=== PATIENT | female | born 1990 | race Caucasian/White ===

== ENCOUNTER 2024-09-03 18:59 | Outpatient (CLI) | payer OTHER, SELFPAY | END 2024-09-03 19:00 | disposition home or self-care (01) | PROVIDERS: Visit Provider Advanced Practice Midwife | DX: Z34.91 Encounter for supervision of normal pregnancy, unspecified, first trimester (principal); Z3A.10 10 weeks gestation of pregnancy | CPT/HCPCS: 86592; 86703; 86704; 86706; 86762; 86787; 86803; 86850; 86900; 86901; 87086; 87340 ==

== ENCOUNTER 2024-11-13 07:52 | Outpatient (CLI) | payer OTHER, SELFPAY | END 2024-11-13 07:53 | disposition home or self-care (01) | LOC: US 07:53 | PROVIDERS: Visit Provider Advanced Practice Midwife | DX: O09.812 Supervision of pregnancy resulting from assisted reproductive technology, second trimester (principal); Z3A.20 20 weeks gestation of pregnancy | CPT/HCPCS: 76811 ==

== ENCOUNTER 2025-01-10 11:20 | Outpatient (CLI) | payer OTHER, SELFPAY | END 2025-01-10 11:21 | disposition home or self-care (01) | LOC: NFLDREF 01-14 05:43 | PROVIDERS: Visit Provider Obstetrics & Gynecology | DX: Z34.03 Encounter for supervision of normal first pregnancy, third trimester (principal) | CPT/HCPCS: 86592 ==

== ENCOUNTER 2025-02-04 08:05 | Outpatient (CLI) | payer OTHER, SELFPAY ==
--- NOTE | 2025-02-04 08:15 | CRLHL7_ITS ---
For Patients: As a result of the Century Cures Act, medical imaging exams and procedure reports are released immediately into your electronic medical record. You may view this report before your referring provider. If you have questions, please contact your health care provider. OBSTETRICAL ULTRASOUND ??? FOLLOW-UP, 02/04/2025 INDICATION: IVF, growth. CLINICAL HISTORY: JOSE by US: 03/30/2025 Gestational Age: 32 weeks 2 days COMPARISON: 11/13/2024 TECHNIQUE: Real-time tijerina-scale imaging of the fetus was performed transabdominal. FINDINGS: Fetus: Single Cervix: Not visualized positioning: Vertex Amniotic fluid: 6.3 cm SDP Placenta technique: Transabdominal Placenta position: Anterior heart rate: 139 bpm BIOMETRY: BPD: 8.7 cm, 35 weeks 0 days, greater than 97% HC: 31.6 cm, 35 weeks 4 days, 91% AC: 29.4 cm, 33 weeks 2 days, 79% FL: 6.2 cm, 32 weeks 0 days, 28% FL/AC Ratio: 20.98% HC/AC ratio: 1.08 EFW: 2168 grams; 4 lbs. 12 oz. age by this ultrasound: 34 weeks 0 days JOSE by this ultrasound: 03/18/2025 Percentile by JOSE: 73% IMPRESSION: 1. Sonographic gestational age is 34 weeks 0 days and sonographic due date is 03/18/2025. Sonographic age is 12 days ahead of the clinical age. 2. Estimated weight is 73rd percentile. Abdominal circumference is 79th percentile. Biparietal diameter is greater than 97th percentile. HARRISON SERRANO M.D. Diagnostic Radiologist [email or web address] Transcribed: 9:[address]/Dictated by: Harrison Serrano MD @ 02/04/2025 8:39:00 AM (Electronically Signed)
== END 2025-02-04 08:06 | disposition home or self-care (01) ==
LOC: US 08:06
PROVIDERS: Visit Provider Advanced Practice Midwife
DX: O09.813 Supervision of pregnancy resulting from assisted reproductive technology, third trimester (principal); O36.63X0 Maternal care for excessive fetal growth, third trimester, not applicable or unspecified; Z3A.32 32 weeks gestation of pregnancy
CPT/HCPCS: 76816

== ENCOUNTER 2025-02-18 10:03 | Outpatient (CLI) | payer OTHER, SELFPAY ==
--- NOTE | 2025-02-18 | CRLHL7_ITS ---
For Patients: As a result of the Cures Act, medical imaging exams and procedure reports are released immediately into your electronic medical record. You may view this report before your referring provider. If you have questions, please contact your health care provider. OB ULTRASOUND JOSE by Manual: 03/30/2025. GA: 34 w, 2 d. Single. INDICATION: Decelerations on NST. TECHNIQUE: Real time grayscale imaging of the fetus was performed. Transabdominal. CERVIX: Not visualized. POSITIONING: Vertex. AMNIOTIC FLUID: 4.6 cm. SDP (N: greater than 2 x 1 cm) BIOPHYSICAL PROFILE: 2: Gross body movements 2: tone 2: Respiratory activity 2: Amniotic fluid SDP (N: greater than 2 x 1 cm) 8/8: Total score PLACENTA: Technique: Transabdominal. PLACENTA POSITION: Anterior. DOPPLER: heart rate: 161 bpm. IMPRESSION: Normal biophysical profile score 8/8. Harrison Cox M.D. Diagnostic Radiologist [email or web address] ruano/Dictated by: Harrison Cox MD @ 02/18/2025 3:18:00 PM (Electronically Signed)
== END 2025-02-18 10:04 | disposition home or self-care (01) ==
PROVIDERS: Visit Provider Obstetrics & Gynecology
DX: O36.8390 Maternal care for abnormalities of the fetal heart rate or rhythm, unspecified trimester, not applicable or unspecified (principal); Z3A.34 34 weeks gestation of pregnancy
CPT/HCPCS: 76819

== ENCOUNTER 2025-03-04 08:00 | Outpatient (CLI) | payer OTHER, SELFPAY ==
--- NOTE | 2025-03-04 08:15 | CRLHL7_ITS ---
For Patients: As a result of the Century Cures Act, medical imaging exams and procedure reports are released immediately into your electronic medical record. You may view this report before your referring provider. If you have questions, please contact your health care provider. INDICATION: In-vitro fertilization TECHNIQUE: Ultrasound OB pelvis transabdominal. Real-time tijerina-scale imaging of the fetus was performed with color Doppler and spectral Doppler analysis of the umbilical artery without stress testing. COMPARISON: 02/18/2025 FINDINGS: Sonographic imaging demonstrates a single living intrauterine gestation. Fetus demonstrates a regular cardiac rate of 139 beats per minute. Fetus has a cephalic orientation. The placenta lies anterior. Amniotic fluid volume appears normal with a MVP of 4.9 cm. breathing movements, motion, and tone were all observed. IMPRESSION: Single viable intrauterine with a biophysical profile 06/13. Dictated by Chavez Vogel MD @ 03/04/2025 8:54:38 AM (Electronically Signed)
== END 2025-03-04 08:01 | disposition home or self-care (01) ==
LOC: US 08:01
PROVIDERS: Visit Provider Advanced Practice Midwife
DX: O09.819 Supervision of pregnancy resulting from assisted reproductive technology, unspecified trimester (principal)
CPT/HCPCS: 76819; 87081; 87653

== ENCOUNTER 2025-03-07 14:55 | Outpatient (CLI) | payer OTHER, SELFPAY ==
[2025-03-07] VITALS (9 sets, daily range): BP systolic 136–146; BP diastolic 75–93; PULSE 93–109; RESP 18; TEMP 36.8; O2SAT 97–99
[2025-03-07 15:25] LABS: Hematocrit 34.3 % (33.0-51.0); Hemoglobin* 11.7 gm/dL (12.0-16.0); Mean Corpuscular HGB Conc 34 gm/dL (32-36); Mean Corpuscular Hemoglobin 30 pg (26-34); Mean Corpuscular Volume 86 fL (80-100); Platelet Count* 280 K/uL (140-440); Red Blood Count 3.97 m/uL (4.00-5.20)
[2025-03-07 15:31] LABS: Slide Review Reflex No
[2025-03-07 15:56] LABS: Total Protein Urine 38 mg/dL
[2025-03-07 16:10] LABS: Alanine Aminotransferase* 18 U/L (4-35); Aspartate Amino Transferase* 28 U/L (12-35); Blood Urea Nitrogen* 6 mg/dL (5-24); Creatinine* 0.5 mg/dL (0.5-1.5); Estimated Glomerular Filt Rate 125 ml/min
[2025-03-07 16:13] LABS: Creatinine Urine 51.8 mg/dL; Protein Creatinine Ratio Urine 0.73 (0-0.19)
--- NOTE | 2025-03-07 17:44 | P.OBO_ITS ---
OB Outpatient HPI History of Present Illness Date Seen: 03/07/25 History of Present Illness: 35 year old at 36 5/7 weeks' gestation by IVF dating, JOSE 03/30/25, presents with report of elevated BP at home. Her friend checked her BP and found it to be 140s - 150s / 90s. She denies GAINES, visual changes, or RUQ pain. OB Problem List, Past Medical, Surgical, Family and Social histories are reviewed and updated in EHR. Meds Home Medications and Allergies Home Medications ?Medication ?Instructions ?Recorded ?Confirmed ?Type bupropion HCl 300 mg 24 hr tablet, 300 mg PO QAM 09/03/24 03/04/25 History extended release (Wellbutrin XL) vit 168-iron 27 mg-folic cap PO 09/03/24 03/04/25 History acid 800 mcg-omega3 235 mg capsule (One-A-Day -1) aspirin 81 mg chewable tablet 81 mg PO QDAY 12/11/24 03/04/25 History Allergies Allergy/AdvReac Type Severity Reaction Status Date / Time Milk Containing Products AdvReac Intermediate Abdominal Verified 03/04/25 08:37 (Dairy) Pain [facility] Medical History (Updated 03/07/25 @ 18:48 by Susan De La Vega MD) Influenza B ?J10.1 - Influenza due to other identified influenza virus with other respiratory manifestations (ICD-10) Infertility Anxiety ?F41.9 - Anxiety disorder, unspecified (ICD-10) Surgical History [place] teeth extracted ?K08.409 - Partial loss of teeth, unspecified cause, unspecified class (ICD- 10) Social History (Updated 03/07/25 @ 18:46 by Susan De La Vega MD) Narrative: She lives with and two stepsons. She works in an office. What is your current living situation?: I presently have a place to live Problems where you live: no known problems In the past 12 months, utilities in danger of being shut off: no In past 12 months, lack of transportation kept you from medical appts, meetings, work, or getting things needed for daily living: no In the past 12 mos, have been you worried that your food would run out before you had money to buy more?: never true In the past 12 mos, the food you bought just didn't last and you didn't have money to buy more?: never true Smoking Status: Never smoker How often does anyone, including family, friends and others, physically hurt you : never How often does anyone, including family, friends and others, insult or talk down to you: never How often does anyone, including family, friends and others, threaten you with harm: never How often does anyone, including family, friends and others, scream or curse at you: never History History 1 Elective abortions Para 0 Spontaneous abortions Hx # Term Pregnancies Ectopic pregnancies Hx # Pregnancies Multiple births Number of Living Children OB - H&P: Exam Physical Exam Vital signs: Temp Pulse Resp BP Pulse Ox 98.3 F 102 H 18 142/75 H 97 03/07/25 15:12 03/07/25 16:42 03/07/25 15:12 03/07/25 16:42 03/07/25 15:06 Narrative: Physical exam: General: No acute distress Psych: Alert and oriented x3, full affect HEENT: Normocephalic, atraumatic Neck: No cervical adenopathy, no thyromegaly Heart: Regular rate and rhythm, no murmur rub or gallop Lungs: Clear to auscultation bilaterally Abdomen: Soft, nontender, gravid, cephalic lie Lower extremities: No edema or erythema Pelvic exam: Mons normal. Cervix 1 / 60 / -3 / anterior / firm. tracing: Baseline 140 / accelerations present / no decelerations / moderate variability. Labs Labs Laboratory Tests 03/07/25 Range/Units 15:20 WBC 10.30 (4.50-11.00) K/uL RBC 3.97 L (4.00-5.20) m/uL Hgb 11.7 L (12.0-16.0) gm/dL Hct 34.3 (33.0-51.0) % MCV 86 (80-100) fL MCH 30 (26-34) pg MCHC 34 (32-36) gm/dL Plt Count 280 (140-440) K/uL BUN 6 (5-24) mg/dL Creatinine 0.5 (0.5-1.5) mg/dL Estimated GFR 125 ml/min AST 28 (12-35) U/L ALT 18 (4-35) U/L Urine Creatinine 51.8 mg/dL Protein/Creatinin Ratio 0.73 H (0-0.19) Urine Total Protein 38 mg/dL Assessment and Plan Assessment and plan (1) Preeclampsia: Status: Acute Assessment and Plan: Currently without severe features. Category I tracing. Unfavorable cervix. Plan We discussed ACOG recommendation for IOL at 37 weeks in the scenario of preeclampsia. She agrees to this plan, but her stepson does have prom tomorrow night and she would like to see him. Thus, we will plan for her to return on Monday evening at 1600, on which day she will be 37 0/7 weeks' gestation, for cervical ripening with Cook catheter. We discussed the usual approach to IOL. Should she develop severe BP elevations, unremitting GAINES, visual changes, or RUQ pain before Monday, she is to return, .
--- NOTE | 2025-03-07 18:10 | PC.OBNST ---
NST Note NST Note Start: 03/07/25 14:53 Freq: ONCE Status: Active Protocol: Document 03/07/25 18:05 OWEN (Rec: 03/07/25 18:09 OWEN Desktop) NST Note 1 Para (# of births) 0 EDC 03/30/25 Gestational Age In Weeks & Days 36 Weeks & 5 Days High Risk Factors Advanced Maternal Age Patient Presented with Complaint(s) of Other Other Complaints Pt. Presented with newly elevated BP today in clinic. BP 154/100 and sent to OB for Serial BP's, Labs, and NST Reactive Yes Appropriate for Gestational Age Yes RN Ramon RN Date 03/07/25 Reactive Yes Appropriate for Gestational Age Yes JULIANE Turner RN Date 03/07/25 OB NST charge Yes Complete NST Note via Write Note Yes The provider's electronic signature indicates the NST is reactive/appropriate for gestational age. *Note to provider: If an addendum is required, open the patient's chart and click on the note under the Nurse/Allied Health tab.
== END 2025-03-07 17:25 | disposition home or self-care (01) ==
LOC: OB OUT 14:56 → OB 14:56
PROVIDERS: Visit Provider Obstetrics & Gynecology
DX: O26.893 Other specified pregnancy related conditions, third trimester (principal); R03.0 Elevated blood-pressure reading, without diagnosis of hypertension; Z3A.36 36 weeks gestation of pregnancy
CPT/HCPCS: 36415; 59025; 82565; 82570; 84156; 84450; 84460; 84520; 85027; G0463

== ENCOUNTER 2025-03-09 15:56 | Inpatient (IN) | payer OTHER, SELFPAY ==
[2025-03-09] VITALS (8 sets, daily range): BP systolic 121–140; BP diastolic 71–93; PULSE 71–103; RESP 18; TEMP 36.8; O2SAT 98; BMI 31.8
--- NOTE | 2025-03-09 18:03 | W.PM.LDBA ---
Subjective History of Present Illness Time Seen by Provider: 18:03 Date Seen: 03/09/25 Narrative: Patient is being admitted to Labor and Delivery for scheduled induction of labor. She is a 35 year old at 37.0 weeks gestation for the indication of pre-eclampsia. Her full history and physical was dictated by Dr. De La Vega on 03/07. Please see this for details. Active movement. Denies Ctx, LOF, vaginal bleeding or abnormal vaginal discharge. Specific Issues/Plans Partner: Brandan? H&P:? Dr. De La Vega 03/07? # Preeclampsia without severe features diagnosed 03/07: Mild elevation of BPs and protein:creatinine = -.73 Cervical ripening 03/09/25 = 37 0/7 weeks. # IVF ? 20 week Level II WNL, echo on 11/29/24 Taking baby ASA Growth at 32 weeks, orders placed Weekly BPP starting at 36 weeks, orders placed # Small mid-muscular VSD on echo No additional echo recommended. echo to ventricular septum Elective cardiology eval and echo recommended in the first month of life. #? Anxiety on Wellbutrin 300mg at [facility]? # Influenza B diagnosed at outside urgent care on 12/24 Prescribed Tamiflu Imaging:??? 11/13/24: Level 2: Diamond intrauterine at 20w 3d gestational age.None of the anomalies commonly detected by ultrasound were evident in the detailed anatomic survey described above.Growth parameters and estimated weight were consistent with appropriate for gestational age pattern of growth.The amniotic fluid volume appeared normal.Recommendation: Given IVF , Yanique has a echo scheduled with Pediatric Cardiology on 11/29/24. Additionally, recommend repeat assessment of growth and anatomy at 32 weeks and weekly BPP at 36 weeks due to IVF , which I anticipate will be schedule at [facility]. 02/04/2025: Vertex, single deepest pocket of amniotic fluid: 6.3 cm, BPD: More than the 97th percentile, HC: 91 percentile, AC: 79th percentile, FL: 28 percentile. EFW: 73rd percentile. Vaccinations:?? COVID: declined Flu: declined Tdap: 01/24/2025 32wk mental health: Done Last pap:? records requested last in 2020, pt prefers to do PP? OB - Problem Based A/P Additional Plan (1) Preeclampsia: Status: Acute (2) Supervision of resulting from assisted reproductive technology: Status: Acute (3) Anxiety: Status: Acute Plan - Admission pre-e labs pending - Cook cath placed at 1745: 60cc/60 cc. Patient tolerated the procedure well - Will start titrating pitocin per protocol at midnight OB Exam Physical Exam Vital signs: Temp Pulse Resp BP Pulse Ox 98.3 F 88 18 135/87 98 03/09/25 16:20 03/09/25 16:19 03/09/25 16:20 03/09/25 16:19 03/09/25 16:17 Narrative: Physical exam: General: No acute distress Psych: Alert and oriented x3, full affect HEENT: Normocephalic, atraumatic Lungs: Unlabored breathing Neuro: No focal deficit. Mentating appropriately Pelvic exam: 1/50/-3, moderately soft, anterior
[2025-03-09 18:46] LABS: Hematocrit 32.2 % (33.0-51.0); Mean Corpuscular HGB Conc 34 gm/dL (32-36); Mean Corpuscular Hemoglobin 30 pg (26-34); Mean Corpuscular Volume 87 fL (80-100); Platelet Count* 278 K/uL (140-440); Red Blood Count 3.72 m/uL (4.00-5.20); White Blood Count* 10.77 K/uL (4.50-11.00)
[2025-03-09 18:51] LABS: Slide Review Reflex No
[2025-03-09 19:01] LABS: Blood Urea Nitrogen* 6 mg/dL (5-24); Creatinine* 0.5 mg/dL (0.5-1.5); Est. Creatinine Clearance* 152.72; Estimated Glomerular Filt Rate 125 ml/min
[2025-03-09 19:02] LABS: Alanine Aminotransferase* 17 U/L (4-35); Aspartate Amino Transferase* 35 U/L (12-35)
[2025-03-09] MEDS: MORPHINE 10 MG/ML inj IM (20:49)
[2025-03-09] MEDS: hydrOXYzine pamoate 25 MG CAPSULE 100 MG PO (20:50)
[2025-03-10] VITALS (39 sets, daily range): BP systolic 102–158; BP diastolic 62–101; PULSE 75–103; RESP 16–19; TEMP 36.4–36.9; O2SAT 96–100
[2025-03-10] MEDS: OXYTOCIN 30 unit/500 ML in NS 30 UNIT/500 ML BAG IVPB (00:25)
[2025-03-10] MEDS: LACTATED RINGERS 1000 ML 1,000 ML 124 ML IV (00:26)
[2025-03-10] MEDS: ACETAMINOPHEN 500 MG TABLET 1000 MG PO ×2 (00:28→10:04)
[2025-03-10] MEDS: CEFAZOLIN 1 GM inj 2 GM IVP (00:55)
--- NOTE | 2025-03-10 08:28 | P.OBPN_ITS ---
Subjective Date Seen: 03/10/25 Narrative: Yanique is a 35 yo woman at 37 1/7 weeks' gestation here for IOL for preeclampsia without severe features. OB Problem List: IVF Small VSD, to have follow up with cardiology in first month of like Anxiety, managed with Wellbutrin Thus far, she has had Cook catheter for cervical ripening overnight. She is currently on Pitocin. Objective Exam: Gen - NAD SVE - 4.5 / 80 / -1 / posterior / moderate. SROM for clear fluid Vital Signs: Last Vital Signs Temp 98.3 F 03/10/25 07:15 Pulse 95 03/10/25 08:02 Resp 18 03/10/25 00:51 BP 126/83 03/10/25 08:02 Pulse Ox 98 03/09/25 16:17 Comments: Pitocin at 12 mU / min tracing: baseline 155 / accelerations present / no decelerations /moderate variability. HELLP labs normal at admit GBS negative Contractions Monitor mode: External Contraction intensity: Mild Pitocin Rate (mU/min): 12 Assessment Amniotic Membrane Status: SROM Status: Category l Resourcing Consultant Variability: Moderate (6-25) Monitor Accelerations: Present Tracing Comments: Reassuring Labor Progress: Favorable cervix. SROM on exam. Maternal Status: Preeclampsia without severe features One mildly elevated BP at admission Normal HELLP labs at admit Plan Plan: Continue pitocin augmentation Epidural as desired.
[2025-03-10] MEDS: LACTATED RINGERS 1000 ML 1,000 ML 117 ML IV ×2 (08:51→17:10)
[2025-03-10] MEDS: OXYTOCIN 30 unit/500 ML in NS 30 UNIT/500 ML BAG 10 UNIT IVPB (18:24)
--- NOTE | 2025-03-10 22:52 | PM.OBPNL ---
Subjective Time Seen by Provider: 22:52 Date Seen: 03/10/25 Narrative: Yanique is a 35 yo woman at 37 1/7 weeks' gestation here for IOL for preeclampsia without severe features. OB Problem List: IVF Small VSD, to have follow up with cardiology in first month of like Anxiety, managed with Wellbutrin Thus far, she has had Cook catheter for cervical ripening overnight. She had SROM on exam at 0840. She has been on Pitocin all day for IOL and has not progressed into active labor. Dose of pitocin was as high as 30 mU/min, and we did pause for 30 minutes earlier this evening, to later restart at 10 mU/min. She is having some low back pain currently but otherwise has no complaints. She is lying in bed. Objective Exam: Gen - NAD SVE - 4.5 / 80 / -1 / posterior / moderate at last check Vital Signs: Last Vital Signs Temp 97.7 F 03/10/25 21:59 Pulse 81 03/10/25 22:00 Resp 19 03/10/25 21:59 BP 138/86 03/10/25 22:00 Pulse Ox 96 03/10/25 21:59 BPs have primarily been mildly elevated today Comments: Pitocin at 20 mU / min tracing: baseline 140 / accelerations present / no decelerations /moderate variability. HELLP labs normal at admit GBS negative Contractions Monitor mode: External Contraction intensity: Mild Pitocin Rate (mU/min): 2 Assessment Amniotic Membrane Status: SROM Status: Category l Bellhop Service Captain Variability: Moderate (6-25) Monitor Accelerations: Present Tracing Comments: Reassuring Labor Progress: Favorable cervix. SROM on exam. Prolonged latent phase Maternal Status: Preeclampsia without severe features One mildly elevated BP at admission Normal HELLP labs at admit Plan Plan: Continue pitocin augmentation for one more hour, then reassess with exam. In one hour, she will be 15 hrs from SROM; if not in active labor, this would constitute failed IOL. We discussed option of , and she is open to this. We discussed risks of , including bleeding / hemorrhage, infection, uterine scarring, impact on future pregnancies, thromboembolism, likely postoperative restrictions and precautions. Consent form is reviewed with and signed by patient.
[2025-03-11] VITALS (21 sets, daily range): BP systolic 117–138; BP diastolic 76–92; PULSE 82–113; RESP 16–18; TEMP 36.4–36.9; O2SAT 92–100
[2025-03-11] MEDS: AZITHROMYCIN 500 MG in 0.9 % SODIUM CHLORIDE 250 ml 250 ML 255 MG IVPB (00:20)
--- NOTE | 2025-03-11 00:25 | W.PM.NB ---
Nerve Block Nerve Block Time Seen by Provider: 02:15 Date Seen: 03/11/25 Type of block requested by surgeon for post-operative analgesia: TAP Side: bilateral Time out performed: Yes Verification of patient name: Yes Verification of date of : Yes Site marking: site marked Name of person performing procedure: Aldo Mello Continuous monitoring Was continuous monitoring of O2 sat, B/P, electronic device monitor, recorded every 15 minutes?: Yes Procedure Checklist: sterile prep, needles and gloves Ultrasound guided. Images saved: Yes Medications given in 5ml increments after negative aspiration: Marcaine %: 0.25 mL: 30 Needle gauge: 20 and Exparel mL: 10 Needle gauge: 20 Patient tolerated procedure well: Yes Additional comments: Injected in 5ml increments after negative aspiration Block Charges Block Charge (with Pro Fee): TAP Bilateral Use of Ultrasound Machine for Block: Yes- US Guidance/pain block
--- NOTE | 2025-03-11 00:26 | P.ANES_ITS ---
Anesthesia Charges Start Date/Time Anesthesia Start Date: 03/11/25 Anesthesia Start Time: 00:36 Stop Date/Time Anesthesia Stop Date: 03/11/25 Anesthesia Stop Time: 02:25 Summary Emergency: DRUPAL DEVELOPER Coding CPT Codes CPT Codes: ANESTH CS DELIVERY - 42813 ([id number]) P2 - PATIENT W/MILD SYST DISEASE, QZ - DRUPAL DEVELOPER SVC W/O UNIVERSITY EXTENSION SPECIALIST BY Additional Codes: Summary - Emergency: DRUPAL DEVELOPER ([id number])
--- NOTE | 2025-03-11 00:26 | W.ANESCHARGE ---
Anesthesia Charges Start Date/Time Anesthesia Start Date: 03/11/25 Anesthesia Start Time: 00:36 Stop Date/Time Anesthesia Stop Date: 03/11/25 Anesthesia Stop Time: 02:25 Summary Emergency: CHLORINE CELL TENDER Coding CPT Codes CPT Codes: ANESTH CS DELIVERY - 65047 ([id number]) P2 - PATIENT W/MILD SYST DISEASE, QZ - CHLORINE CELL TENDER SVC W/O CORE FILER BY Additional Codes: Summary - Emergency: CHLORINE CELL TENDER ([id number])
[2025-03-11] MEDS: TRANEXAMIC ACID 100 MG/ML INJ 1000 MG IV (01:30)
[2025-03-11] MEDS: LACTATED RINGERS 1000 ML 1,000 ML 125 ML IV (01:35)
[2025-03-11] MEDS: KETOROLAC 30 MG/ML inj IVP ×4 (01:51→20:34)
--- NOTE | 2025-03-11 02:00 | PM.OBPRCCS ---
Procedure Date of procedure: 03/11/25 Pre-op diagnosis: 37 2/7 weeks' gestation Preeclampsia without severe features Failed induction of labor Post-op diagnosis: same Procedure Done: Global Will [facility] bill your pro fee for this procedure?: Yes Blood Loss Measurement Type: QBL (601) Bakri Used: No IV fluids (mL): 1,400 Urine Output (mL): 50 Surgeon: Susan De La Vega MD Anesthesia Type: Spinal and TAP Block Findings: 1. Male , cephalic OP presentation, nuchal cord X 1, Apgars 7 & 9, weight pending 2. Normal appearance of uterus, bilateral tubes and ovaries. Procedure Name: Primary low transverse delivery Procedure Description: Patient was taken to the operating room with IV running. She received cefazolin and azithromycin in preoperative prophylaxis. Spinal anesthesia was administered. Hanna catheter was inserted. She was prepped and draped in the usual sterile fashion. Anesthesia was tested and found to be adequate. A low-transverse skin incision was made with a scalpel and carried through to the underlying layer of fascia with the scalpel. The subcutaneous fat was dissected off the underlying fascia with Bovie. The fascia was nicked in the midline with a scalpel, and this incision was extended laterally with scissors. The rectus muscles were in the midline. Peritoneum was identified and entered bluntly. Bovie was used to widen this opening laterally. Ba O retractor was inserted and tightened down, providing excellent visualization of the lower uterine segment. The bladder reflection was found to be well below the planned site for hysterotomy. Low-transverse uterine incision was made with a scalpel. Incision was widened bluntly. The infant's head was grasped through the hysterotomy. After initial attempts to deliver the head with the help of fundal pressure were unsuccessful, the Ba O retractor was removed and the fascia was dissected further off superiorly the underlying rectus with scissors. The head was then delivered with the help of fundal pressure. The remainder of the body delivered without incident. Cord was clamped and cut shortly after due to initial low tone, but at 1 minute was 7. Infant was handed off to attending nurses. The placenta was delivered with gentle traction on the cord. The uterus exteriorized and cleaned of all clots and debris with the dry lap pad. The hysterotomy was reapproximated with 0 Vicryl in a running, locked fashion. Second layer of the same suture was used in imbricating fashion to obtain hemostasis. Additional [id number] sutures were required in the left hysterotomy angle to obtain hemostasis. The adnexa were examined and noted to be normal in appearance. Uterus was returned to the abdomen. The cul-de-sac and gutters were cleansed with laparotomy sponge, removing any further clots and debris. The hysterotomy was reexamined and found to be hemostatic. The peritoneum was reapproximated with 2 0 Vicryl in a running fashion. The rectus muscles were examined and found to be hemostatic. The fascia was reapproximated with 0 Vicryl in a running fashion. Subcutaneous fat was irrigated and Bovie used on oozing vessels. The subcutaneous fat was reapproximated with 2 0 plain gut suture in an interrupted fashion. The skin was closed with a subcuticular stitch of 4-0 Monocryl. Surgical glue was applied above this. Patient tolerated procedure well was taken to recovery area in stable condition. Pathology: specimen obtained, sent to pathology (placenta) Surgery Debrief Performed: Yes Surgery Debrief Comment: Postoperative debrief was verbalized with OR staff, including a verification of pathology specimens to be sent as described above. Condition: stable Disposition: floor
[2025-03-11] MEDS: LOPERAMIDE HCL 2 MG CAPSULE 4 MG PO (02:15)
[2025-03-11] MEDS: ACETAMINOPHEN 500 MG TABLET 1000 MG PO ×3 (06:16→19:27)
[2025-03-11] MEDS: DOCUSATE SODIUM 100 MG CAPSULE PO (07:59)
[2025-03-12] VITALS (8 sets, daily range): BP systolic 126–144; BP diastolic 78–94; PULSE 76–88; RESP 16–18; TEMP 36.7–37.1; O2SAT 97–99
[2025-03-12 02:18] LABS: Rapid Plasma Reagin (RPR) Non Reactive (Non Reactive)
[2025-03-12] MEDS: ACETAMINOPHEN 500 MG TABLET 1000 MG PO ×4 (02:31→20:36)
[2025-03-12] MEDS: KETOROLAC 30 MG/ML inj IVP ×2 (02:32→09:01)
--- NOTE | 2025-03-12 07:33 | PM.OBPNVD1 ---
OB - PN:Subj Subjective Date Seen: 03/12/25 Narrative: Yanique is a 35 year old who was admitted for IOL for preeclampsia without severe features and proceeded to have a ? for arrest of labor. The patient feels well.? The pain is well controlled with current medications. She has no new complaints.? Urinary output is adequate and she is voiding without difficulty.? Has a good appetite, is tolerating a general diet, is passing flatus, and has not had a bowel movement.? Has scant amount of rubra lochia.? She is ambulating well. She is pumping and reports she plans to meet with today.? She has been normotensive since around 8pm last evening. She has no complaints of GAINES, vision changes or RUQ pain. OB - PN: Obj Exam Physical Exam: Vital signs: Temp Pulse Resp BP Pulse Ox O2 Del Method 98.3 F 76 16 126/85 97 Room Air 03/12/25 05:49 03/12/25 05:49 03/12/25 05:49 03/12/25 05:49 03/12/25 05:49 03/12/25 05:49 Narrative: GENERAL APPEARANCE:? normal affect, alert, no distress MOOD:? appropriate CHEST:? clear to auscultation HEART:? regular rate and rhythm ABDOMEN:? soft, the uterine fundus is At Umbilicus, Midline and is appropriate for the stage of recovery. EXTREMITIES:? normal and minimal edema Incision: Incision intact and dry with no surrounding erythema, abnormal induration or discharge OB - PN: Obj Data Labs Labs: Laboratory Results - last 24 hr 03/09/25 03/12/25 18:40 06:09 Hgb 9.0 L RPR Screen Non Reactive OB - PN: A/P Delivery Assessment and Plan (1) care following delivery: Status: Acute (2) Preeclampsia: Status: Acute (3) Anxiety: Status: Acute (4) Lactating mother: Status: Acute Plan Comments: PP day #1 Routine care May see as desired Anticipate discharge 03/13/2025
[2025-03-12] MEDS: DOCUSATE SODIUM 100 MG CAPSULE PO (09:01)
[2025-03-12] MEDS: IBUPROFEN 600 MG TABLET PO ×2 (13:14→19:12)
[2025-03-13 00:18] VITALS: BP 137/87; PULSE 76; RESP 16; TEMP 36.7; O2SAT 98
[2025-03-13] MEDS: IBUPROFEN 600 MG TABLET PO ×3 (03:04→15:37)
[2025-03-13] MEDS: ACETAMINOPHEN 500 MG TABLET 1000 MG PO ×2 (03:36→12:31)
[2025-03-13 08:35] VITALS: BP 141/92; PULSE 80; RESP 12; TEMP 36.7; O2SAT 100
[2025-03-13] MEDS: DOCUSATE SODIUM 100 MG CAPSULE PO (08:49)
--- NOTE | 2025-03-13 09:38 | PM.OBDSVD1 ---
DS: Providers Provider Date Seen: 03/13/25 Date of admission: 03/09/25 15:56 Primary care physician: Not a Local Provider Admitting Clinician: Molly Blanco MD Attending Physician on discharge: Jose Wiley CNM Date of Discharge: 03/13/25 DS: Diagnosis Discharge Diagnosis (1) care following delivery: Status: Acute (2) Lactating mother: Status: Acute (3) Preeclampsia: Status: Acute Exam Narrative: Exam Narrative: GENERAL APPEARANCE:? normal affect, alert, no distress MOOD:? appropriate CHEST:? clear to auscultation HEART:? regular rate and rhythm ABDOMEN:? soft, non-tender the uterine fundus is firm 1 cm below Umbilicus, Midline and is appropriate for the stage of recovery. EXTREMITIES:? normal and 1+ edema Incision: Healing well, no surrounding erythema, abnormal induration or discharge Const: Vital Signs, click to edit/add: Vital Signs - 24 hr 03/12/25 13:11 03/12/25 14:54 03/12/25 16:19 Temperature 98.0 F Pulse Rate [Pulse Oximeter] 85 88 85 Respiratory Rate 18 Blood Pressure [Ri ght Arm] 144/94 H 130/88 137/89 Pulse Oximetry 98 Oxygen Delivery Me thod Room Air 03/12/25 20:32 03/12/25 20:39 03/13/25 00:18 Temperature 98.8 F 98.0 F Pulse Rate [Pulse Oximeter] 86 76 Respiratory Rate 16 16 Blood Pressure [Ri ght Arm] 139/92 H 135/89 137/87 Pulse Oximetry 98 98 Oxygen Delivery Me thod Room Air Room Air 03/13/25 08:35 Temperature 98.1 F Pulse Rate [Pulse Oximeter] 80 Respiratory Rate 12 Blood Pressure [Ri ght Arm] 141/92 H Pulse Oximetry 100 Oxygen Delivery Me thod Room Air Documenting provider has reviewed patient's vital signs: yes OB - DS: Summary Hospital Course Hospital Course: Yanique is a 35 y.o. who was admitted [facility] for preeclampsia without severe features and proceeded to have a ? for arrest of labor.. ?She had an uncomplicated primary .?The patient feels well. ?The pain is well controlled with current medications. ?She has no new complaints. ?She is breast feeding and reports things are going well.? the patient has done well.? Vitals have been stable, blood pressures lightly elevated. She was started on nifedipine 30mg daily today per Dr. Polanco direction. ? She has remained afebrile.? Has a good appetite, is tolerating a general diet. ?She is voiding without difficulty.? She is passing gas and has not had a bowel movement.? She is ambulating and denies any dizziness.? Has Small amount of rubra lochia. ?Partner has already had a vasectomy for prevention. Reviewed addition of blood pressure medication today, follow up on Monday for BP check, home blood pressure monitoring, s/s to watch for and BP parameters. Aware there is a small risk of readmission if BPs are worsening, pt would still like to discharge today. Peripartum Data Infant delivery method: Primary C/S; Labored Episiotomy description: Midline Procedures: Procedures Operation Date: 03/11/25 00:30 Actual Procedure Side Surgeon p Primary Section Susan De La Vega MD complications: none [place] Gender: Male Infant Discharge Plan: Home Status at Discharge Functional status at discharge: independent ambulation Overall status at discharge: patient is progressing back to baseline Time Spent with Patient Time attestation: Total time spent providing and/or coordinating discharge services: Time spent: Less than 30 minutes Discharge Plan Discharge Disposition: Home, Self-Care Date of Admission: 03/09/25 15:56 Attending Provider on Discharge: Jose Wiley Consulting Providers: Susan De La Vega Primary Care Provider: Provider,Not a Local Condition: Stable Anticipated Discharge Date/Time: 03/13/25 12:00 Discharge Medications: New nifedipine 30 mg Tablet Extended Release 30 mg PO DAILY Qty: 30 0RF acetaminophen 500 mg Tablet 1,000 mg PO Q6H PRN (Reason: pain/fever) Qty: 0 0RF docusate sodium 100 mg Capsule 100 mg PO DAILY Qty: 90 1RF ibuprofen 600 mg Tablet 600 mg PO Q6H PRN (Reason: Pain) Qty: 60 0RF oxycodone 5 mg Tablet 5 - 10 mg PO Q4H PRN (Reason: Pain) Qty: 10 0RF ferrous sulfate 324 mg (65 mg iron) tablet,delayed release (DR/EC) 324 mg PO Q OTHER DAY Qty: 30 2RF Continued bupropion HCl [Wellbutrin XL] 300 mg tablet extended release 24 hr 300 mg PO QAM One-A-Day -1 27 mg iron- 800 mcg-235 mg capsule PO Discontinued aspirin 81 mg tablet,chewable 81 mg PO QDAY Discharge Orders: Discharge Order (Routine); Ordered 03/13/25 Ordered By: Jose Wiley Patient Education: OB Over the Counter Medication Information, OB /Breast Feeding Additional Instructions: Discharge instructions were reviewed with the patient including signs and symptoms of infection and home going medications Lifting Restrictions: 20 pounds for 6 weeks No not submerge incision under water X 2 weeks? Nothing vaginally for 6 weeks: no tampons or intercourse Do not drive while taking narcotic pain medication(s) Off Work or School for 6 weeks [facility] for [facility] BP check?03/17/25 Call with BP greater than or equal to 150/100 2-week visit: incision check, discuss infant feeding concerns, review control options and screen for anxiety/depression. 6-week visit for an annual exam. consultation services are available to all mothers and babies for the first year after delivery.? To make an appointment, please call [phone]. Activity Level: Activity as Tolerated Discharge Diet: Regular Follow Up Appointments: [facility] [Provider Group] Forms: [employer] Info Instructions
[2025-03-13 12:14] VITALS: BP 128/83; PULSE 92; O2SAT 99
[2025-03-13] MEDS: NIFEdipine ER 30 MG TAB PO (12:32)
[2025-03-13] MEDS: buPROPion XL 150 MG TABLET 300 MG PO (13:40)
== END 2025-03-13 15:38 | disposition home or self-care (01) | DRG 788 ==
PROVIDERS: Obstetrics & Gynecology; Admitting Provider Obstetrics & Gynecology; Visit Provider Obstetrics & Gynecology
PROC: 10D00Z1 Extraction of Products of Conception, Low, Open Approach (ICD-10-PCS; CPT 59514; principal; 2025-03-11 00:30)
DX: O14.04 Mild to moderate pre-eclampsia, complicating childbirth (principal); Z3A.37 37 weeks gestation of pregnancy; Z37.0 Single live birth; O61.0 Failed medical induction of labor; O09.813 Supervision of pregnancy resulting from assisted reproductive technology, third trimester; O99.344 Other mental disorders complicating childbirth; F41.9 Anxiety disorder, unspecified; G89.18 Other acute postprocedural pain; O35.BXX0 Maternal care for other (suspected) fetal abnormality and damage, fetal cardiac anomalies, not applicable or unspecified
CPT/HCPCS: 01961; 36415; 59200; 64488; 76942; 82565; 84450; 84460; 84520; 85018; 85027; 86592; 86850; 86900; 86901; 88307; 99140; A4314; A9270; C1726; J0456; J0665; J0666; J0690; J1100; J1885; J2270; J2405; J2590; J7050; J7120

== ENCOUNTER 2025-03-19 13:18 | Outpatient (CLI) | payer OTHER, SELFPAY ==
--- NOTE | 2025-03-19 15:02 | P.LACCB_ITS ---
Consult Note - Mom Date of Visit Date of visit: 03/19/25 Reason for consultation: Assistance Needed (latching assist) and Low Milk Supply (questioning supply based on pump volumes) Visit Code: Visit Patient's Information Phone number: [phone] : 1 Para: 1 Allergies Milk Containing Products (Dairy) Adverse Reaction (Intermediate, Verified 03/17/25 17:23) Abdominal Pain Mother's medical history: Difficulty conceiving ( had vasectomy, not reversible; 3rd try of IVF) and Other (gestational hypertension) Mother's Medical History: Medical History (Updated 03/15/25 @ 00:00 by Background Daemon) Influenza B ?J10.1 - Influenza due to other identified influenza virus with other respiratory manifestations (ICD-10) Infertility Anxiety ?F41.9 - Anxiety disorder, unspecified (ICD-10) Delivery Information Delivery type: Primary C/S; Labored Gestational Age: 37+2 Gestational Weight For Age: AGA Weight: 3.11 kg Discharge Weight: 2.896 kg Percentage weight loss: 6.9 Baby's Information Baby's Age at Visit: 8 days Baby's Provider or Clinic: [facility] Jaundice: Yes Past Experience Past Experience: No Current Frequency of Day Feedings: every 3 hours, needs waking for feedings Frequency of Night Feedings: same Both Breasts: Yes (sometimes, has only latched a few times for feedings) Suck: strong for about 5 minutes then gets sleepy Latch: comfortable, could be deeper Length of Time: 5-10 min ea Goals: 6-12 months Pumping Pumping: Yes Quantity Pumped: 1-2 oz total; more from RIGHT than LEFT Supplementing EBM Supplement: Yes Formula Supplement: Yes (aking 2-3 oz/feeding every 3 hours) Baby Elimination Number of Wet Diapers a Day: ea feeding Number of BM a Day: most feedings; yellow, seedy Breast/Nipple Condition Breast Information: Breasts are symmetrical with rounded lower quadrants, intramammary distance is less than 1.5 inches. No erythema. Nipples are supple, everted prior to feeding. Yanique does report minimal breast changes during ; did not go up in bra size, areola did not darken; endorses she did have some sensitivity Breast Shape: Round Engorgement: No Maternal Nipple Condition - Left: Common Nipple Maternal Nipple Condition - Right: Common Nipple Sore Nipples: No Interventions for Sore Nipples: Other (using Silverettes preventatively) Baby Assessment Skin: Normal and Yellow (to mid-chest) Tongue/frenulum: Normal/elastic Palate: Average Lips: Relaxed and Symmetrical Jaw Alignment: Symmetrical Mucosa: [place], moist Onsite Observation Pre-Feed weight: 3.106 kg Post-Feed weight: 3.156 kg Milk Transferred (mL): 50 Position: Cross cradle and Football Attachment/latch-on achieved: With difficulty (took 3 minutes to latch on left breast; 5 min to latch on right breast) Suck pattern: Suck burst and normal rest Swallow: Audible, consistent Behavior following feed: Relaxed, sleepy Pre-Nursing Left Nipple: Within Normal Limits Pre-Nursing Right Nipple: Within Normal Limits Post-Nursing Left Nipple: Within Normal Limits Post-Nursing Right Nipple: Within Normal Limits Assessments/Interventions Assessments/Interventions: observation: Sethe took a few minutes to wake up enough and get mouth open wide enough to latch to mom's left breast; reviewed with mom need for wide open mouth for deep latch; techniques to encourage reviewed Once he was on the breast, needed assist to get lips flanged out for more rhythmic suckling After about 7 minutes, he got quite sleepy; encouraged mom to utilize breast compression and he re-engaged in feeding with stronger sucks and more swallows Milk transferred: 20ml Mom moved baby to her right breast in football hold, after several minutes he was not showing signs of wanting to feed. She put him upright and tried to burp him, then placed him in cross cradle position; again took a few minutes to get him awake and alert but then he engaged in the feeding. He nursed well for 12 minutes, then mom did breast compression near the end Milk transferred: 30ml Total milk transferred: 50 ml Discussed his caloric needs age for weight and expect he needs around 18 oz/day; if he nurses every 2-3 hours it is possible for him to get what he needs from so far Encouraged mom to follow his cues and offer supplement after if he is acting hungry; start with 1/2 oz and give more if needed. Reviewed normal nursing behavior includes cluster feeding, especially in the evening. Frequent feeding helpful to stimulate mom's milk supply. Education provided: Early feeding cues to maximize timing of latching, Asymmetric latch technique for wide/deep latch to increase milk, Transfer for baby and increase comfort for mom (reviewed this technique for deeper latch at home ), Supply/demand nature of milk supply, Sore nipple treatment options, Alternative feeding methods (SNS, cup, finger feeding, bottling) (bottle options discussed) and Pumping for milk management (recommend pump for 20 min if baby won't nurse; pump 2-3 times/day after feedings to stim supply if baby is nursing more frequently) Follow-Up Suggested follow up: Appointment in 1 week (Recommended f/u appt since changing up feeding pattern to be sure he is getting adequate volumes for growth; mom agreeable) Time Spent Time spent with patient (min): 90 (reviewing EMR and face to face with patient and ) Meds Home Medications and Allergies Home Medications ?Medication ?Instructions ?Recorded ?Confirmed ?Type bupropion HCl 300 mg 24 hr tablet, 300 mg PO QAM 09/03/24 03/17/25 History extended release (Wellbutrin XL) vit 168-iron 27 mg-folic cap PO 09/03/24 03/17/25 History acid 800 mcg-omega3 235 mg capsule (One-A-Day -1) acetaminophen 500 mg tablet 1,000 mg (2 x 500 mg) PO Q6H PRN 03/13/25 03/17/25 Rx pain/fever #0 tabs docusate sodium 100 mg capsule 100 mg PO DAILY #90 caps 03/13/25 03/17/25 Rx ferrous sulfate 324 mg (65 mg 324 mg PO Q OTHER DAY #30 tabs 03/13/25 03/17/25 Rx iron) tablet,delayed release ibuprofen 600 mg tablet 600 mg PO Q6H PRN Pain #60 tabs 03/13/25 03/17/25 Rx nifedipine 30 mg tablet,extended 30 mg PO DAILY #30 tabs 03/13/25 03/17/25 Rx release oxycodone 5 mg tablet 5 - 10 mg (1 - 2 x 5 mg) PO Q4H 03/13/25 03/17/25 Rx PRN Pain #10 tabs Allergies Allergy/AdvReac Type Severity Reaction Status Date / Time Milk Containing Products AdvReac Intermediate Abdominal Verified 03/17/25 17:23 (Dairy) Pain
== END 2025-03-19 13:19 | disposition home or self-care (01) ==
PROVIDERS: Visit Provider Obstetrics & Gynecology
DX: Z39.1 Encounter for care and examination of lactating mother (principal)
CPT/HCPCS: G0463

== ENCOUNTER 2025-03-24 13:07 | Outpatient (CLI) | payer OTHER, SELFPAY ==
--- NOTE | 2025-03-24 15:18 | W.PM.LAC.MF ---
Follow-Up Note: Mom Date of visit Date of visit: 03/24/25 Reason for consultation: Assistance Needed Visit Code: Visit Patient's Information Allergies Milk Containing Products (Dairy) Adverse Reaction (Intermediate, Verified 03/24/25 12:51) Abdominal Pain Delivery Information Delivery type: Primary C/S; Labored Gestational Age: 37+2 Gestational Weight For Age: AGA Weight: 3.11 kg Last Weight: 3.106 kg Baby's Information Baby's name: Markos Baby's Age at Visit: 13 days Baby's Provider or Clinic: [facility] Current Frequency of Day Feedings: every 2-3 hours, some cluster feedings in the evening Frequency of Night Feedings: closer to 3 hours Both Breasts: Yes Suck: strong at first, but gets quite sleepy Latch: comfortable, working on keeping bottom lip flanged Length of Time: 10 min ea side Pumping Pumping: Yes Quantity Pumped: 1.5-2 oz, twice a day, after feedings Supplementing EBM Supplement: Yes (takes 2 oz bottle before bedtime) Formula Supplement: No Baby Elimination Number of Wet Diapers a Day: ea feeding Number of BM a Day: 6+, yellow and seedy Breast/Nipple Assessment Breast/Nipple Assessment: Breasts are symmetrical with rounded lower quadrants, intramammary distance is less than 1.5 inches. No erythema. Nipples are supple, everted prior to feeding. Breast Shape: Round Engorgement: No Maternal Nipple Condition - Left: Common Nipple Maternal Nipple Condition - Right: Common Nipple Sore Nipples: No Onsite Observation Pre-feed weight: 3.122 kg (up 16gms from prefeed weight 5 days ago) Post-Feed weight: 3.18 kg Milk Transferred (mL): 58 Pre-Nursing Left Nipple: Within Normal Limits Pre-Nursing Right Nipple: Within Normal Limits Post-Nursing Left Nipple: Within Normal Limits Post-Nursing Right Nipple: Within Normal Limits Assessments/Interventions Assessments/Interventions: observation Erin latched well to mom's RIGHT breast; this is her side that typically makes more milk He nursed strongly for 11 minutes and then got quite sleepy Milk transferred: 42 ml He then nursed on mom's LEFT breast; nursed for 8.5 minutes, but less vigorously than on the first side Mom tried breast compression to get him more milk with little reengagement in the feeding Milk transferred: 16ml Total milk transferred: 58 ml Discussed with mom his caloric needs: 3.122kg x120 kcal/kg / 20cal/oz = 18-19 oz/day for growth compared to this feeding; he would need 9-10 feedings exactly like this to grow well. Recommend continue with nighttime before bed bottle; if he takes all 2oz, offer 1/2 oz more Also discussed offering 1/2 oz after ea daytime feeding, if he takes it all, offer another 1/2 oz. If he acts hungry after nighttime feedings, offer supplement as well Mom to add in additional pumpings to try and stimulate her milk supply and to have EBM to offer him. Discussed at this point it's hard to know if he needs time to grow and gain strength to transfer more milk, or if she needs an increased milk supply (possibly compromised due to minimal breast changes in ) Triple feeding will help to sort this out. Education provided: Early feeding cues to maximize timing of latching, Asymmetric latch technique for wide/deep latch to increase milk, Transfer for baby and increase comfort for mom, Supply/demand nature of milk supply, Need for frequent stimulation/milk removal, Alternative feeding methods (SNS, cup, finger feeding, bottling), Pumping for milk management and Milk collection, storage Follow-Up Recommend baby be seen by provider for:: weight check on 03/27; depending on weight at that time, mom will call for f/u thoughts/ideas Time Spent Time spent with patient (min): 60 Meds Home Medications and Allergies Home Medications ?Medication ?Instructions ?Recorded ?Confirmed ?Type bupropion HCl 300 mg 24 hr tablet, 300 mg PO QAM 09/03/24 03/24/25 History extended release (Wellbutrin XL) vit 168-iron 27 mg-folic cap PO 09/03/24 03/24/25 History acid 800 mcg-omega3 235 mg capsule (One-A-Day -1) docusate sodium 100 mg capsule 100 mg PO DAILY #90 caps 03/13/25 03/24/25 Rx ferrous sulfate 324 mg (65 mg 324 mg PO Q OTHER DAY #30 tabs 03/13/25 03/24/25 Rx iron) tablet,delayed release nifedipine 30 mg tablet,extended 30 mg PO DAILY #30 tabs 03/13/25 03/24/25 Rx release Allergies Allergy/AdvReac Type Severity Reaction Status Date / Time Milk Containing Products AdvReac Intermediate Abdominal Verified 03/24/25 12:51 (Dairy) Pain
== END 2025-03-24 13:08 | disposition home or self-care (01) ==
LOC: OB LAC 13:08
PROVIDERS: Visit Provider Obstetrics & Gynecology
DX: Z39.1 Encounter for care and examination of lactating mother (principal)
CPT/HCPCS: G0463